=== PATIENT | female | born 1995 | race Caucasian/White ===

== ENCOUNTER 2023-09-12 09:25 | Day surgery (SDC) | payer OTHER, SELFPAY ==
[2023-09-12] VITALS (12 sets, daily range): BP systolic 101–129; BP diastolic 57–88; PULSE 69–104; RESP 15–16; TEMP 36.1–37; O2SAT 94–100; BMI 23.0
--- NOTE | 2023-09-12 09:44 | ED.VIS.FEGU ---
HPI HPI - Female History of Present Illness Chief Complaint: Vag Bld, Preg Informant: patient Associated Symptoms P: 2 Narrative Narrative: Patient is a 28-year-old female presenting with concern for miscarriage. Last menstrual period was 07/08 she had a positive test in July. She has not received care she recently relocated from [place] to this area. She notes that she did have a private sneak peek ultrasound at 6 weeks 5 days which showed an intrauterine gestation and a slower heartbeat. She started bleeding about a week and a half ago but it became much more brisk last night. He started having cramping. She states she is passing clots about the size of a half dollar. This morning she had a gush of a large clot that came out. She is not sure if she spectrums products of conception. She was having more cramping before she passed a large clot that is improved. She is continued to bleed however and wanted to be evaluated. She has an appointment with Susan Echavarria (sr. vendor management associate for [facility]) in 2 days which was the soonest she could get in. Patient states that she has A- for her blood type. Her prior care was all in [place] with her previous children and miscarriage. PFSH PFSH Medical History unable to obtain Home Medications ibuprofen 800 mg tablet 800 mg PO Q8H PRN pain #15 tabs 09/12/23 [Rx Last Taken Unknown] oxycodone-acetaminophen 5 mg-325 mg tablet (Percocet) 1 tab PO Q4H PRN pain 3 days #5 tabs 09/12/23 [Rx Last Taken Unknown] Allergy/AdvReac Type Severity Reaction Status Date / Time Sulfa (Sulfonamide Allergy Intermediate Rash Verified 09/12/23 13:39 Antibiotics) Surgical History unable to obtain Social History Smoking Status: Never smoker ROS ROS ED Constitutional Constitutional ED: Denies chills or fever(s) Cardiovascular Cardiovascular: Denies chest pain Respiratory/Chest Respiratory/Chest: Denies cough Gastrointestinal Gastrointestinal: Reports abdominal pain; Denies nausea or vomiting Genitourinary Genitourinary ED: Reports other Details: Vaginal bleeding, positive test Integumentary Denies rash Neurologic Neurologic: Denies headache(s) Hematologic/Lymphatic Hematologic/Lymphatic: Denies easy bleeding or easy bruising EXAM Physical Exam Const Vital Signs: 09/12/23 09:26 09/12/23 12:16 09/12/23 12:16 Temperature 98 F 98.6 F Temperature Source Temporal Temporal Pulse Rate 104 H 89 84 Respiratory Rate 16 16 16 Respiratory Pattern Blood Pressure 129/88 H 116/69 116/69 Blood Pressure Mean 101 84 84 Blood Pressure Source Blood Pressure Position Blood Pressure Location Baseline BP Pulse Ox 99 100 100 Oxygen Delivery Method Room Air Room Air Room Air Oxygen Flow Rate (L/min) 09/12/23 13:34 09/12/23 13:34 09/12/23 13:37 Temperature 96.9 F L Temperature Source Temporal Pulse Rate 88 88 88 Respiratory Rate 16 16 Respiratory Pattern Blood Pressure 129/79 H 129/79 H 129/79 H Blood Pressure Mean 95 95 95 Blood Pressure Source Blood Pressure Position Blood Pressure Location Baseline BP Pulse Ox 98 98 98 Oxygen Delivery Method Room Air Room Air Oxygen Flow Rate (L/min) 09/12/23 13:40 09/12/23 14:40 09/12/23 14:45 Temperature 98.1 F Temperature Source Temporal Pulse Rate 74 76 Respiratory Rate 16 16 Respiratory Pattern Normal Normal Blood Pressure 107/68 103/62 Blood Pressure Mean 81 75 Blood Pressure Source Monitor Monitor Blood Pressure Position Semi-Fowlers Semi-Fowlers Blood Pressure Location Left Arm Left Arm Baseline BP 129/79 129/79 Pulse Ox 94 96 Oxygen Delivery Method Room Air Nasal Cannula Oxygen Flow Rate (L/min) 2 09/12/23 14:50 09/12/23 14:55 09/12/23 15:00 Temperature Temperature Source Pulse Rate 71 71 73 Respiratory Rate 16 16 16 Respiratory Pattern Blood Pressure 103/57 L 101/58 L 102/63 Blood Pressure Mean 72 72 76 Blood Pressure Source Monitor Monitor Monitor Blood Pressure Position Semi-Fowlers Semi-Fowlers Semi-Fowlers Blood Pressure Location Left Arm Left Arm Left Arm Baseline BP 129/79 129/79 129/79 Pulse Ox 97 97 97 Oxygen Delivery Method Nasal Cannula Nasal Cannula Nasal Cannula Oxygen Flow Rate (L/min) 2 2 2 09/12/23 15:05 09/12/23 15:15 09/12/23 15:22 Temperature 98.1 F Temperature Source Temporal Pulse Rate 69 85 Respiratory Rate 16 15 Respiratory Pattern Normal Blood Pressure 105/61 111/69 Blood Pressure Mean 75 83 Blood Pressure Source Monitor Monitor Blood Pressure Position Semi-Fowlers Semi-Fowlers Blood Pressure Location Left Arm Left Arm Baseline BP 129/79 129/79 Pulse Ox 98 100 Oxygen Delivery Method Nasal Cannula Room Air Oxygen Flow Rate (L/min) 2 09/12/23 15:58 Temperature Temperature Source Pulse Rate Respiratory Rate Respiratory Pattern Blood Pressure Blood Pressure Mean Blood Pressure Source Blood Pressure Position Blood Pressure Location Baseline BP 129/79 Pulse Ox Oxygen Delivery Method Oxygen Flow Rate (L/min) Positive well nourished and well developed General Appearance ED: well developed and NAD HEENT Reports moist mucous membranes Eyes PERRL and EOMs intact bilaterally General Eye ED: Negative for pale conjunctiva Neck supple Chest Wall inspection of chest normal Resp normal respiratory effort and clear to auscultation bilaterally Cardio regular rate and regular rhythm GI normal to inspection, nondistended, normoactive bowel sounds and soft to palpation Narrative: Normal external genitalia. Large amount of clots and blood on internal exam. There is active bleeding present. Os appears open. No significant tenderness to exam. Neuro oriented x3 Sensorium / Orientation: alert Motor Exam: Negative for general weakness Psych mental status grossly normal Skin no rashes or lesions noted MDM MDM MDM Narrative Medical decision making narrative: Patient evaluated for vaginal bleeding in . Patient believes she is having a miscarriage. She had private ultrasound at least 2 weeks ago that showed an intrauterine gestation with a heartbeat however the heartbeat was weak. She is had increase in bleeding. She does not have a surgical abdomen. She does have significant bleeding on exam. Differential includes threatened miscarriage, incomplete miscarriage and inevitable miscarriage. She is a negative and is given RhoGAM in the ER. Her hemoglobin is mildly low at 11.1 however she appears to be hemoglobin likely stable. I do not think she is suffering from hemorrhagic shock at this point. Transvaginal ultrasound shows no evidence of intrauterine gestation however it is suggestive of retained products of conception. Case discussed initially with sr. vendor management associate on-call and then OB on-call, Dr. Kee. Ultimately patient was taken for D&C. She is agreeable with this. She remains hemodynamically stable. Lab Data Attestation: I reviewed the patient's lab results. Labs: Laboratory Results - last 24 hr 09/12/23 09:39 WBC 8.7 RBC 3.70 L Hgb 11.1 L Hct 33.8 L MCV 91.4 MCH 30.0 MCHC 32.8 RDW Std Deviation 41.5 RDW Coeff of Yahaira 12.3 Plt Count 241 MPV 9.9 Immature Gran % (Auto) 0.500 Neut % (Auto) 68.7 Lymph % (Auto) 20.9 [place] % (Auto) 8.3 Eos % (Auto) 0.9 Baso % (Auto) 0.7 Absolute Neuts (auto) 6.0 Absolute Lymphs (auto) 1.81 Nucleated RBC % 0 HCG, Quant 80779 H Serum , Qual Cancelled Blood Type A NEGATIVE Radiography Diagnostic Testing: Clinical Impression(s) from Imaging Studies Obstetrics Ultrasound 09/12/23 10:04 IMPRESSION: No evidence of intrauterine gestation. Heterogeneous thickening of the endometrium suggestive of possible retained products of conception. Small left corpus luteum cyst. Electronically Signed: Kishor Bowers MD at 12:10 EDT , Discharge Plan Dx/Rx/DC Orders Clinical Impression: Incomplete , Anemia Disposition Disposition: Acute Care Hospital [facility] Discharge Date/Time: 09/12/23 13:41
[2023-09-12 09:52] LABS: Absolute Lymphocyte Count 1.81 X10^3/uL (0.83-4.51); Basophil# 0.06 X10^3/uL; Basophil% 0.7 % (0-1); Eosinophil# 0.08 X10^3/uL; Eosinophils% 0.9 % (0-5); Hematocrit 33.8 % (37-47); Hemoglobin 11.1 g/dL (12.0-15.0); Lymphocyte # 1.81 X10^3/ul (0.83-4.51); Lymphocyte % 20.9 % (19-41); Mean Corp Hgb Conc 32.8 g/dL (32-36); Mean Corpuscular Volume 91.4 fL (81-99); Mean Platelet Vol. 9.9 fl (6.2-12.0); Monocyte# 0.72 X10^3/uL; Monocyte% 8.3 % (0-10); NRBC Flagged by Analyzer 0 % (0-5); Neutrophil # 5.96 X10^3/uL (2.7-7.7); Neutrophil % 68.7 % (47-70); Platelet Count 241 K/mm3 (150-450); RBC Distribution Width CV 12.3 % (11.6-14.6); RBC Distribution Width SD 41.5 fl (35.1-43.9); White Blood Count 8.7 K/mm3 (4.4-11.0)
--- NOTE | 2023-09-12 10:04 | US_ITS ---
STUDY: FIRST TRIMESTER OBSTETRICAL ULTRASOUND REASON FOR EXAM: Female, 28 years old vaginal bleeding, suspect active miscarriage LMP: July 07, 2023. TECHNIQUE: Transvaginal TECHNICAL QUALITY: Adequate. PRIOR ULTRASOUND: None. FINDINGS: There is no demonstrated intrauterine gestational sac. There is no demonstrated yolk sac. The placenta is non-visualized. There is no demonstrated embryo ( pole). The estimated gestation age (EGA) by LMP is 9 weeks, 4 days. The estimated date of delivery (SANDRA) by LMP is April 12, 2024.. The uterus measures 10.3 cm x 6.2 cm x 5.1 cm. The endometrium is heterogeneously thickened measuring 2 cm. Retained products of conception is suspected. There is no demonstrated uterine fibroid. The cervix is closed. The right ovary measures 2.8 cm x 2 cm x 1.8 cm. There is no right ovarian cyst. There is no visualized right adnexal mass or complex lesion. The left ovary measures 3.1 cm x 2.3 cm x 2.4 cm.. There is a 2 cm x 1.5 cm x 1.7 cm left corpus luteum cyst. There is no visualized left adnexal mass or complex lesion. There is no fluid in the cul de sac. US/Transvaginal w/Preg US IMPRESSION: No evidence of intrauterine gestation. Heterogeneous thickening of the endometrium suggestive of possible retained products of conception. Small left corpus luteum cyst. Electronically Signed: Kishor Bowers MD at 12:10 EDT ,
[2023-09-12 10:31] LABS: hCG Titer Quant., Serum 11945 mIU/mL (1-3)
--- NOTE | 2023-09-12 13:30 | POC_PTH ---
PATIENT: QUE LOCKE [place] [facility] [id number] AGE/SX: 28/F ROOM: RE09/12/[address]: Dr. Alysha Alamo DO : 1995 BED: DIS: 09/12/2023 SPEC #: [id number] RECD: 09/12/23 18:21 STATUS: JOEY YENI #: [id number] CHRISTIANO: 09/12/23 13:[address]: Alysha Alamo DEPT: SURGICAL PATHOLOGY RECD BY: Elizabeth Solomon ENTERED: 09/13/23 08:55 SP TYPE: PROD CONC OTHR DR: No Primary Care Phys Tissues: Product of conception, NOS Procedures: Surgery Specimen Level IV HEADER OPERATION: Suction dilation and curettage PRE-OP DIAGNOSIS: Incomplete TISSUE SUBMITTED: Products of conception MICROSCOPIC DIAGNOSIS Products of conception, dilation and curettage: [place], gestational endometrium and immature chorionic villi (products of conception), clinically incomplete . CHAPARRO:micah 09/14/2023 MICROSCOPIC DESCRIPTION Slides are reviewed. GROSS DESCRIPTION Received in fixative is one container labeled with the patient's name and designated products of conception. The specimen consists of multiple fragments of pink hemorrhagic soft tissue mixed with blood clots that in aggregate measure 6.0 x 6.0 x 2.0 cm. tissue is not identified. Dinkey Skinner tissue is submitted in three cassettes. / CHAPARRO:micah 09/13/2023 TC:5 CPT: 37067
--- NOTE | 2023-09-12 13:32 | HP.PCM.OB_ITS ---
HPI - General General Date of Admission: 09/12/23 HPI Narrative QUE LOCKE, is a 28 y/o @ between 6 and 8 weeks gestation who presents to [facility] after passing large clots and heavy bleeding at home. She has her first appt with [facility] in 3 days as she recently moved to the area. The ER physician called initially stating that she had to use a suction to see anything in the vagina due to the large amount of blood and clot present in the vagina and at the cervical os. Ultrasound shows a 2 cm endometrium with clot and debris, suspicious for retained products of conception. pt states that her only medical problems in the past are a prior miscarriage that passed spontaneously and anxiety. She normally gets hyperemesis with her pregnancies but since she started bleeding her nausea improved. [facility] Allergy/AdvReac Type Severity Reaction Status Date / Time Sulfa (Sulfonamide Allergy Intermediate Rash Verified 09/12/23 13:39 Antibiotics) Social History Smoking Status: Never smoker ROS Constitutional Constitutional: Denies change in weight, fatigue, fever(s), headache(s), poor appetite or weakness Eyes Eyes: Denies blurry vision, change in vision, seeing flashes or spots in vision ENT HEENT: Denies dizziness, headache(s), loss taste/smell or sore throat Cardiovascular Cardiovascular: Denies chest pain, dizziness, dyspnea, irregular heart rhythm, leg edema, palpitations, rapid heart rate or vomiting Respiratory/Chest Respiratory/Chest: Denies chest tightness, cough, dyspnea or breast pain Gastrointestinal Gastrointestinal: Denies abdominal pain, anorexia, constipation, cramping, diarrhea, hemorrhoids, vomiting or weight changes Genitourinary Genitourinary: Denies dysuria, flank pain, genital lesions, genital pain, urinary frequency or urinary urgency Musculoskeletal Musculoskeletal: Denies back pain, difficulty walking, joint pain, limited range of motion, muscle cramps or numbness Integumentary Integumentary: Denies lesions or unusual bruising Neurologic Neurologic: Denies abnormal movements, abnormal speech, dizziness, numbness, seizure-like activity or syncope Psychiatric Psychiatric: Denies anxiety, behavioral changes, change in appetite, change in libido, cognitive impairment, confusion, depression, difficulty concentrating, hallucinations or suicidal thoughts Endocrine Endocrinology: Denies excessive sweating, polydipsia or polyuria Hematologic/Lymphatic Hematologic/Lymphatic: Denies easy bleeding, easy bruising or lymphadenopathy Allergic/Immunologic Allergic/Immunologic: Denies itchy eyes, lip swelling, seasonal rhinorrhea, rhinitis, throat swelling, tongue swelling, eczemia, wheezing or asthma Vital Signs Vital Signs Vital Signs: 09/12/23 09:26 09/12/23 12:16 09/12/23 12:16 Temperature 98 F 98.6 F Temperature Source Temporal Temporal Pulse Rate 104 H 89 84 Respiratory Rate 16 16 16 Blood Pressure 129/88 H 116/69 116/69 Blood Pressure Mean 101 84 84 Pulse Ox 99 100 100 Oxygen Delivery Method Room Air Room Air Room Air Physical Exam Const alert, oriented x3, no apparent distress and healthy appearing General Appearance: cooperative; Negative for anxious HEENT normocephalic Face and Sinus: normal facial exam Eyes EOMs intact bilaterally and no scleral icterus General Eye: normal appearance of both eyes Neck full ROM and supple Lymph Lymphatic: no lymphadenopathy noted Chest Chest: abnormal inspection of the chest Resp normal respiratory effort Effort and Inspection: able to speak in complete sentences Cardio regular rate GI soft to palpation and non-tender Inspection: gravid Palpation: soft; Negative for tender external exam normal Back/Spine no CVA tenderness Extremity normal to inspection, full ROM and no clubbing, cyanosis or edema General Extremity: Negative for calf tenderness or edema Skin Lesions: no lesions Rashes: no rashes Psych mental status grossly normal Labs Labs Labs: Blood Type A NEGATIVE Hct 33.8 % (37-47) L Hgb 11.1 g/dL (12.0-15.0) L Obstetrics Ultrasound Assessment & Plan (1) Incomplete : PLAN: After discussing the patient's diagnosis and treatment plan options, patient wishes to proceed with surgical management. The plan is to proceed with a suction dilation and curettage to removed the remaining products. I have discussed with the patient the risks, benefits, and alternatives of the procedure which include but are not limited to risks of anesthesia, bleeding, infection, possible damage to bowel, bladder, or surrounding vasculature which could lead to additional surgery to evaluate any complications. Patient agrees to procedure and wishes to proceed. ACOG/uptodate references given for additional information regarding procedure.
[2023-09-12] MEDS: 0.9% Normal Saline (1000mL) 1,000 ML 15 ML IV (13:45)
--- NOTE | 2023-09-12 14:10 | DCINST_ITS ---
Discharge Instructions Diet Discharge Diet: No restrictions Activity Discharge Activity: Return to Normal Activity, May Shower and May Take a Tub Bath (after 1 week) May resume sexual activity in: 1-2 weeks Weight Bearing Status: Weight bearing as tolerated Lifting Restrictions: none Dressing / Incision Call your doctor if you observe: Fever of 101 or Higher, Using more than 1 pad per hour, Shortness of breath and Uncontrolled pain Follow Up Care Please Follow Up With: Alysha Alamo DO When: Call [phone] to schedule appointment. Test Results: Test results from this visit will be discussed in further detail at your follow- up appointment, if applicable. Discharge Plan Admission Primary Reason for Your Visit: dilation and curettage for miscarriage Attending Provider: Alysha Alamo Primary Care Provider: Care PhysicianAngelica Primary Discharge Orders/Prescriptions Prescriptions: New ibuprofen 800 mg tablet 800 mg PO Q8H PRN (Reason: pain) Qty: 15 0RF oxycodone-acetaminophen [Percocet] 5-325 mg tablet 1 tab PO Q4H PRN (Reason: pain) 3 Days Qty: 5 0RF Rx Instructions: 1-2 tabs q 4 hrs as needed for pain Referrals / Follow Up: Care Physician,No Primary [Primary Care Provider] - Disposition Disposition (needs filled in before D/C Order can be placed): Home, Self Care
[2023-09-12] MEDS: Lidocaine 1% (30 ml sdv) 30 ML Vial (14:27)
--- NOTE | 2023-09-12 14:38 | OP.PCM_ITS ---
Problems Associated Problem List Diagnoses (1) Incomplete : Report of Operation Date of Procedure: 09/12/23 Pre-Operative Diagnosis: 6 week incomplete Post-Operative Diagnosis: 6 week incomplete Surgery/Procedure Performed:: suction dilation and curettage Description of Surgical Findings:: moderate retained products of conception Surgeon: Alysha Alamo behavior interventionist: None Type of Anesthesia: Local MAC Anesthesiologist: Khang Montgomery Specimen's removed: products of conception Drains: none Estimated Blood Loss (mL): 20cc Description of Procedure: Patient was taken to the operating room and placed under MAC local anesthesia. She was prepped and draped in the normal sterile fashion the dorsal lithotomy position. Bladder was drained of clear urine and anterior lip of the cervix was grasped and the uterus sounded to 8 cm. Cervix was progressively dilated to allow passage of a size 8 suction curette. Progressive passes were made removing the retained products of conception without complication. Sharp curettage confirmed complete removal of the retained products. All instruments were removed from the vagina and excellent hemostasis was noted and the patient was taken to recovery in stable condition Admit VTE Documentation VTE Present on Admission: No VTE Mechan Device Prophylaxis: SCD's VTE Pharm Prophylaxis ordered?: No Multi Select Codes Urinary/Genital Urinary/Genital CPT Codes: 87097 Surg Trtmt missed Ab 1TM
== END 2023-09-12 16:00 | disposition home or self-care (01) ==
LOC: ED 13:20 → SDC 13:34
PROVIDERS: Emergency Provider Emergency Medicine; Visit Provider Obstetrics & Gynecology
PROC: (CPT 59820; principal; 2023-09-12 13:15)
DX: O03.4 Incomplete spontaneous abortion without complication (principal)
CPT/HCPCS: 59820; 01965; 76817; 84702; 85025; 86900; 86901; 88305; 99284; J7030; A4216; J2405; J2790

== ENCOUNTER → 2023-09-30 | Outpatient (CLI) | payer OTHER, SELFPAY ==
[2023-09-30 16:19] LABS: hCG Titer Quant., Serum 44 mIU/mL (1-3)
[2023-09-30 16:23] LABS: T4 Free Direct 0.93 ng/dL (0.76-1.46); Thyroid Stim Hormone (TSH) 2.38 uIU/mL (0.358-3.74)
[2023-10-02 07:07] LABS: Thyroid Peroxidase AB 16 IU/mL (0-34)
== END | disposition home or self-care (01) ==
PROVIDERS: Referring Provider Obstetrics & Gynecology; Visit Provider Obstetrics & Gynecology
DX: O03.4 Incomplete spontaneous abortion without complication (principal); O21.0 Mild hyperemesis gravidarum
CPT/HCPCS: 36415; 84439; 84443; 84702; 86376